=== PATIENT | male | born 1945 | race African-American/Black ===

== ENCOUNTER → 2020-09-19 | Outpatient (CLI) | payer MEDICARE ==
[2014-03-30 10:44] VITALS: BP 121/75
[~2020-09-19] MED LIST: ASPI-630 PO; LISI1TAB20 PO; SIMV40TA18 PO
--- NOTE | 2020-09-19 18:06 | CARD ---
MR#: [id number] Date of Study: 09/19/2020 Ordering Physician: CHE ST, Referring Physician: CHE ST, Tech: Donna Villela [facility] APPROVED REPORT EXAM: Two-dimensional and M-mode echocardiogram with Doppler and color Doppler. Other Information Quality : AverageHR: 91bpm Rhythm : NSR INDICATION Hypertension/HCVD RISK FACTORS Hypertension 2D DIMENSIONS RVDd3.9 (2.9-3.5cm)Left Atrium(2D)3.0 (1.6-4.0cm) IVSd1.2 (0.7-1.1cm)Aortic Root(2D)3.6 (2.0-3.7cm) LVDd4.4 (3.9-5.9cm)LVOT Diameter2.2 (1.8-2.4cm) PWd1.0 (0.7-1.1cm)IVSs1.5 (0.8-1.2cm) LVDs2.7 (2.5-4.0cm)FS (%) 37.8 % PWs1.6 (0.8-1.2cm)SV58.9 ml LVEF(%)68.2 (>50%) Aortic Valve AoV Peak Dick.154.5cm/sAoV VTI29.3cm AO Peak GR.9.5mmHgLVOT Peak Dick.118.6cm/s LVOT VTI 21.92cmAO Mean GR.5mmHg JESSE (VMAX)2.17ap6EYF (VTI)2.79cm2 Mitral Valve MV E Ljmzsvgb354.9cm/sMV DECEL MDEO255mz MV A Xusajgbc23.9cm/sMV VRK81gg E/A Ratio1.3MVA (PHT)4.36cm2 TDI E/Lateral E'11.1E/Medial E'9.5 Pulmonary Valve PV Peak Uanmrref26.8cm/sPV Peak Grad.3mmHg Tricuspid Valve TR P. Gepttylb473dn/sTR Peak Gr.32mmHg LEFT VENTRICLE The left ventricle is normal size. There is borderline concentric left ventricular hypertrophy. The l eft ventricular systolic function is normal and the ejection fraction is within normal range. Estimat ed ejection fraction 60-65%. There is normal LV segmental wall motion. The left ventricular diastolic function and filling is normal for age. RIGHT VENTRICLE The right ventricle is normal size. There is normal right ventricular wall thickness. The right ventr icular systolic function is normal. ATRIA The left atrium size is normal. The right atrium size is normal. The interatrial septum is intact wit h no evidence for an atrial septal defect or patent foramen ovale as noted on 2-D or Doppler imaging. AORTIC VALVE The aortic valve is normal in structure and function. Doppler and Color Flow revealed no significant aortic regurgitation. There is no significant aortic valvular stenosis. MITRAL VALVE The mitral valve is normal in structure and function. There is no evidence of mitral valve prolapse. There is no mitral valve stenosis. Doppler and Color-flow revealed mild mitral regurgitation. TRICUSPID VALVE The tricuspid valve is normal in structure and function. Doppler and Color Flow revealed mild tricusp id regurgitation. Estimated PAP 40 mmHg. There is no tricuspid valve stenosis. PULMONIC VALVE Doppler and Color Flow revealed no pulmonic valvular regurgitation. There is no pulmonic valvular barber nosis. GREAT VESSELS The aortic root is normal in size. The IVC is normal in size and collapses >50% with inspiration. PERICARDIAL EFFUSION There is no evidence of significant pericardial effusion. Critical Notification Critical Value: No <Conclusion> The left ventricular systolic function is normal and the ejection fraction is within normal range. E stimated ejection fraction 60-65%. There is normal LV segmental wall motion. Doppler and Color Flow revealed mild tricuspid regurgitation. Estimated PAP 40 mmHg. Signed by : Spencer Moreno, Electronically Approved : 09/19/2020 18:06:06
== END ==
LOC: ECHO 10:18
PROVIDERS: ATTEND Internal Medicine Cardiovascular Disease
DX: I08.1 Rheumatic disorders of both mitral and tricuspid valves (principal); I11.9 Hypertensive heart disease without heart failure
CPT/HCPCS: 93306